=== PATIENT | female | born 1945 | race Asian ===

== ENCOUNTER 2021-10-13 08:04 | Day surgery (SDC) | payer MEDICARE, BC ==
[2021-10-13] VITALS (8 sets, daily range): BP systolic 94–138; BP diastolic 49–80; PULSE 58–71; TEMP 98.2
[~2021-10-13] VITALS: Ht 149.9 cm; Wt 62.0 kg
[2021-10-13 08:55] LABS: BASO % 0.5 % (0.0-2.0); EOS # 0.1 K/mm3 (0.0-0.7); GRAN # 3.6 K/mm3 (1.4-6.5); GRAN % 65.3 % (42.2-75.2); HEMOGLOBIN 12.3 g/dl (12.5-16.0); LYMPH # 1.2 K/mm3 (1.2-3.4); MEAN CELL VOLUME 89 fl (80.0-100.0); MEAN CORPUSCULAR HEMOGLOBIN 30 pg (27-31); MEAN CORPUSCULAR HGB CONC 34 g/dl (33.0-37.0); MEAN PLATELET VOLUME 8.7 fl (7.4-10.4); MONO # 0.6 K/mm3 (0.1-0.6); PLATELET COUNT 267 K/mm3 (130-400); RED BLOOD COUNT 4.11 M/mm3 (4.10-5.30); REDCELL DISTRIBUTION WIDTH-CV 12.1 % (11.5-14.5)
[2021-10-13 09:01] LABS: HEMATOCRIT 36.6 % (37.0-47.0)
[2021-10-13] MEDS ORDERED: ALTACE 10MG TAB10 MG PO (09:03)
[2021-10-13] MEDS ORDERED: ALDACTONE 25MG25 M1 PO (09:03)
[2021-10-13] MEDS ORDERED: LOPRESSOR 225 MG/TAB PO (09:04)
[2021-10-13] MEDS ORDERED: ELIQUIS 5MG PO (09:04)
[2021-10-13] MEDS ORDERED: RESTASIS MULTI5.5 ML OP (09:04)
[2021-10-13] MEDS ORDERED: PROSCAR 5MG5 MG PO (09:11)
[2021-10-13 09:12] LABS: CALCIUM 8.9 mg/dL (8.4-10.2); CREATININE, serum 0.88 mg/dL (0.57-1.11); MAGNESIUM 2.1 mg/dL (1.6-2.6); POTASSIUM 4.5 mmol/L (3.5-4.5)
[2021-10-13] MEDS ORDERED: MINOXIDIL 2.5 PO (09:12)
[2021-10-13] MEDS ORDERED: ELIDEL1% TOP (09:13)
[2021-10-13] MEDS ORDERED: TEMOVATEE15CR TOP (09:13)
[2021-10-13 09:14] LABS: INR 1.8 (0.8-3.0); PROTHROMBIN TIME 20.6 SECONDS (9.7-12.8)
[2021-10-13] MEDS ORDERED: [UNRECOGNIZED DRUG - OTHER] TOP (09:14)
[2021-10-13] MEDS ORDERED: THERATEARS 15 M15 ML OP (09:15)
[2021-10-13] MEDS ORDERED: THERALITH PO (09:16)
[2021-10-13 09:17] LABS: PARTIAL THROMBOPLASTIN TIME 37.9 SECONDS (26.0-37.0)
[2021-10-13] MEDS ORDERED: SYSTANE BALANCE10 M1 OP (09:17)
[2021-10-13] MEDS ORDERED: BIOTIN10000 MC1 PO (09:17)
[2021-10-13 09:32] LABS: THYROID STIMULATING HORMONE 2.088 uIU/mL (0.350-4.940)
[2021-10-13] MEDS ORDERED: MULTAQ400 MG PO (09:47)
--- NOTE | 2021-10-13 11:30 | NUR ---
Pt care was assumed at 0940, report received from Jhonny GAN. Pt was successfully cardioverted and remained in NSR during her recovery. As ordered, amiodarone drip and initial multaq tab were administered. Pt had no problems, vitals remained stable, she ate some snacks, was amb to br twice with steady gait. I reviewed dc/rx and fu instructions with pt and . IV was dc'd with cath intact, dressing was applied. Pt escorted to exit via wheelchair.
== END 2021-10-13 11:30 | disposition home or self-care (01) ==
LOC: COL.CAR 08:04
PROVIDERS: Internal Medicine Cardiovascular Disease
DX: I48.0 Paroxysmal atrial fibrillation (principal); I10 Essential (primary) hypertension
CPT/HCPCS: J0282; J2704; J7060